=== PATIENT | male | born 1940 | race American Indian/Alaskan Native ===

== ENCOUNTER 2016-07-08 08:08 | Outpatient (CLI) | payer MEDICARE ==
--- NOTE | 2016-07-08 11:01 | Cat Scan Report ---
CT ABDOMEN PELVIS WITHOUT CONTRAST History: Malignant neoplasm of prostate Technique: Helical CT without IV contrast. Sagittal and coronal reformatted images. Findings: The lung bases are clear. Heart size is normal. The liver, biliary system, pancreas, spleen, kidneys and adrenal glands are within normal limits. The bowel loops are normal caliber. Normal appendix. Surgical changes are noted in the prostate bed. The bladder is unremarkable. Please note that right hip replacement generates artifact in the pelvis. There are approximately 4 or 5 enlarged left periaortic lymph nodes measuring up to 2 cm. These lymph nodes have decreased in size since 2010 which the largest lymph node measured 4.3 cm. These are suspicious for metastatic disease. No other adenopathy is appreciated. The bony structures are intact. No blastic bony lesions are detected. The aorta is dilated up to 3.8 cm. Impression: 4 or 5 suspicious and mildly enlarged lymph nodes in the left para-aortic chain are detected. These lymph nodes have decreased in size by 50-75% since 11/09/10. No visceral mass or blastic bony lesions are detected on noncontrast CT.
--- NOTE | 2016-07-08 12:17 | Nuclear Medicine Report ---
BONE SCAN: History: Prostate cancer. Compared to the CT abdomen and pelvis without contrast performed the same day. After injection of isotope, gamma camera imaging of the bony system was done. There is a normal uptake of isotope throughout the bony structures without areas of significantly increased or decreased uptake. Normal uptake in the urinary system is seen. IMPRESSION: Negative bone scan.
== END 2016-07-08 08:09 | disposition home or self-care (01) ==
LOC: CT 08:08
PROVIDERS: ATTEND Urology
DX: C61 Malignant neoplasm of prostate (principal); R59.9 Enlarged lymph nodes, unspecified; Z96.641 Presence of right artificial hip joint
CPT/HCPCS: 74176; 78306; A9503

== ENCOUNTER 2016-09-25 09:53 | Outpatient (CLI) | payer MEDICARE ==
--- NOTE | 2016-09-25 17:25 | Vascular Lab Report ---
ABDOMINAL AORTA DUPLEX EXAM: REASON FOR EXAM: Concern for abdominal aortic aneurysm with risk factors of abdominal pain. COMMENTS ON THE AORTA: The aorta is patent. A small aneurysmal dilatation is noted. Mild atherosclerotic change is identified. The proximal aorta measures up to 1.97 x 2.12 cm. The mid aorta measures up to 2.49 x 3.09 cm. The distal aorta measures up to 3.71 x 3.32 centimeters. IMPRESSION: Small distal infrarenal abdominal aortic aneurysm. Recommend repeating ultrasound in 6 months..
--- NOTE | 2016-09-25 17:26 | Vascular Lab Report ---
MESENTERIC ARTERIAL DUPLEX Reason for exam: Mesenteric artery insufficiency Comments: The aorta is patent. Flow velocities are within normal limits. Minimal atherosclerotic change is identified. No aneurysmal dilatation is noted. The celiac artery is patent. Flow velocities are normal. No evidence of obstruction is identified. The superior mesenteric artery is patent. Flow velocities are normal. No evidence of obstruction is identified. A caloric challenge was not given. Impression: This study does not support the diagnosis of mesenteric ischemia.
== END 2016-09-25 09:54 | disposition home or self-care (01) ==
LOC: VAS 09:53 → US 09:53 → VAS 09:54
PROVIDERS: ATTEND Internal Medicine
DX: I71.4 Abdominal aortic aneurysm, without rupture (principal)
CPT/HCPCS: 93979

== ENCOUNTER 2017-07-29 09:23 | Outpatient (CLI) | payer MEDICARE ==
--- NOTE | 2017-07-29 13:56 | Nuclear Medicine Report ---
NUCLEAR MEDICINE WHOLE-BODY BONE SCAN: 07/29/17 10:00:00 CLINICAL: Prostate cancer. COMPARISON: 07/08/16 TECHNIQUE: 25 millicuries technetium 99m MDP was injected intravenously and whole body scans were obtained at 3 hours. FINDINGS: New suspicious uptake in the right fourth anterior rib, the sacrum (S1 to the right of midline), right iliac bone and bilateral proximal femurs at the hips. Normal distribution of activity in soft tissues and kidneys. IMPRESSION: Several new foci of uptake are suspicious for new metastases.
--- NOTE | 2017-07-29 17:09 | Cat Scan Report ---
FINAL REPORT PROCEDURE: CT abdomen and pelvis without contrast. TECHNIQUE: Computerized axial tomography of the abdomen and pelvis was performed without intravenous contrast. This study is performed without intravascular contrast material and its sensitivity for abdominal and pelvic pathology, including neoplasms, inflammation, abscess, free fluid, thrombosis, arterial dissection and infarction, is reduced compared with a contrast enhanced study. HISTORY: Prostate cancer. COMPARISON: No prior studies are available for comparison. FINDINGS: There is a tiny peripheral nodule in the left lower lobe measuring 5.2 millimeters. This is not highly suspicious but is noncalcified and is an indeterminate nodule. The lung bases are otherwise clear. There are no pleural effusions. The heart size is normal. There is a sharply defined mass of low attenuation in the left lobe of the liver. This measures 18.5 millimeters x 18.7 millimeters in cross-section. It has fluid attenuation and is consistent with a hepatic cyst. The gallbladder is present. The pancreas and spleen are grossly normal. The adrenal glands are not enlarged. Both kidneys appear normal in size and configuration. There is an infrarenal abdominal aortic aneurysm with maximum diameter of 4.4 centimeters. Referral to a vascular surgeon is recommended. There is a fairly large soft tissue mass adjacent to the left side of the abdominal aorta. This is near the level of the left kidney. This mass measures 4.6 centimeters in width by 4.6 centimeters in depth by 5.8 centimeters in length. It is consistent with retroperitoneal adenopathy. There are some smaller additional soft tissue masses in the para-aortic region. These are also consistent with enlarged lymph nodes. This could represent metastatic disease from the patient's known prostate cancer. There are a few small soft tissue masses in the retrocrural region consistent with enlarged lymph nodes. The gastrointestinal tract is unremarkable. A normal appendix is visible. The bladder is unremarkable. There is streak artifact in the lower pelvis due to a right hip prosthesis. The prostate is not seen well and may have been removed. The regional skeleton appears intact. There are no definite signs of osseous metastases. IMPRESSION: Small nonspecific left lower lobe nodule. Cyst in the left lobe of the liver. 4.4 centimeter diameter abdominal aortic aneurysm. Soft tissue masses in the retrocrural and retroperitoneal regions worrisome for metastatic disease in lymph nodes.
== END 2017-07-29 09:24 | disposition home or self-care (01) ==
LOC: NM 09:23
PROVIDERS: ATTEND Urology
DX: C61 Malignant neoplasm of prostate (principal); K76.89 Other specified diseases of liver; I71.4 Abdominal aortic aneurysm, without rupture; R91.1 Solitary pulmonary nodule; Z96.641 Presence of right artificial hip joint
CPT/HCPCS: 74176; 78306; A9503